=== PATIENT | female | born 1990 | race American Indian/Alaskan Native ===

== ENCOUNTER 2017-06-18 10:09 | Day surgery (SDC) | payer OTHER ==
[2017-06-01 09:55] VITALS: BMI 28.4
[2017-06-18] MEDS ORDERED: Propofol 10 mg/ml Inj (20 ML) ONE (13:07)
[2017-06-18] MEDS ORDERED: Midazolam 2 MG/2 ML VIAL ONE (13:07)
[2017-06-18] MEDS ORDERED: Methylene Blue 10 mg/mL(10ml) IV ONE (13:18)
[2017-06-18] MEDS ORDERED: ceFAZolin IV 1 gm in Dextrose 1 GM/50 ML BAG IVPB ONE (13:18)
[2017-06-18] MEDS ORDERED: Bupivacaine HCl 0.5% PF (10 ml) Inj ONE (13:33)
[2017-06-18] MEDS ORDERED: Neostigmine Methylsulfate 3mg/3ml Syringe IV ONE (15:00)
--- NOTE | 2017-06-18 15:11 | PCM.SURG1 ---
Surgeon's Initial Post Op Note - Surgeon's Notes Surgeon: Angeline De La O MD Passport Support Manager: Bernardino Diaz MD Type of Anesthesia: General Endo Pre-Operative Diagnosis: Hydrosalpinx, left ovarian cyst, pelvic pain Operative Findings: antervsersted uteurs 8 weeks, left ovarian simple cyst adhesrent to left broad ligament, dilated fallopian tube, adhesions over both fallopian tubes adn ovaries with immbolie left adenxa, no spillage of dy on intial evalatuion, with bialteral patent fallopian tubes post procedure. Dr Bernardino Diaz was surgical services assistant and essential in gaining entry , retraction, exposure, holding camera, lysing adhesions, fimbrioplasty, ovarian cystectomy and was presnt for entire case. Post-Operative Diagnosis: same as above, biltaeral patent fallopian tubes Operation Performed: Operative laparascopy, left ovarian cystectomy, lysis of adhesions, fimbroplasty Specimen/Specimens Removed: ovarian cyst Estimated Blood Loss: EBL {In ML}: 20 Blood Products Given: N/A Drains Used: No Drains Post-Op Condition: Good Date of Surgery/Procedure: 06/18/17 Time of Surgery/Procedure: 13:00
[2017-06-18] MEDS ORDERED: Lactated Ringer's 1,000 ML IV ONE (15:15)
[2017-06-18] MEDS ORDERED: Oxycodone/Acetaminophen 5/325 mg Tab PO PRN (15:28)
[2017-06-18] MEDS: HYDROmorphone 0.5 mg/0.5 ml ISec IVP PRN ×2 (15:38→16:05)
[2017-06-18] MEDS ORDERED: HYDROmorphone 1 mg/ml ISec ONE ×2 (15:40→16:03)
[2017-06-18] MEDS ORDERED: HYDROmorphone 0.5 mg/0.5 ml ISec IVP PRN (16:47)
[2017-06-18] MEDS ORDERED: Lactated Ringer's 1,000 ML IV SCH (17:00)
[2017-06-18 17:54] VITALS: RESP 18
[2017-06-18 18:34] VITALS: BP 128/84; PULSE 72; TEMP 97.9; O2SAT 100
--- NOTE | 2017-06-19 09:02 | OP ---
PROCEDURE DATE: 06/18/2017 PREOPERATIVE DIAGNOSES: Hydrosalpinx, left ovarian cyst, pelvic pain. POSTOPERATIVE DIAGNOSES: Hydrosalpinx, left ovarian cyst, pelvic pain, bilateral patent fallopian tubes. OPERATION PERFORMED: Operative laparoscopy, left ovarian cystectomy, lysis of adhesions, removal of , removal of ovarian cyst, chromopertubation. SURGEON: Angeline De La O MD PAPER BALER: Bernardino Diaz MD TYPE OF ANESTHESIA: General endotracheal. OPERATIVE FINDINGS: Anteverted uterus 8 weeks, left ovarian simple cyst adherent to left broad ligament, dilated fallopian tubes, adhesions of both fallopian tubes and ovaries with immobile left adnexa, no spillage of dye on initial evaluation but with bilateral patent fallopian tubes post procedure. Dr. Bernardino Diaz was surgical tech and was essential in gaining anterior retraction and closure, holding the camera, lysing of adhesions, ovarian cystectomy, and was present for the entire case. ESTIMATED BLOOD LOSS: 20 mL. BLOOD PRODUCTS: None. COMPLICATIONS: None. DESCRIPTION OF PROCEDURE: The patient is a 27-year-old that desires fertility, that has a history of a chronic left ovarian cyst with possible hydrosalpinx with pelvic pain. After transvaginal ultrasound, was noted to have a persistent left ovarian cyst with pain failing medical management. All risks and benefits of the surgery had been discussed with the patient in, and all of her questions were answered. The patient was taken to the operating room in stable condition. The patient was taken to the operating room where she was placed under general anesthesia without difficulty. She was then prepped and draped in the usual sterile fashion, placed in a dorsal lithotomy position. A preoperative bimanual exam was performed. Attention was then turned to the vagina where weighted speculum was placed in the vagina. Anterior lip of the cervix was grasped using a single-toothed tenaculum. The bladder had been drained with a De Los Santos catheter in place. Following this, the uterus was then sounded and the cervix was sequentially dilated to allow for introduction of the HUMI manipulator, which was insufflated with 8 mL of air. Following this, the methylene blue was then inserted for the chromopertubation. The methylene blue was then inserted slowly to avoid vasospasm. Following this, the surgeon re-gloved, and attention was then turned to the abdomen. Two towel clips were placed to the side of the infraumbilical fold, and 0.5 Marcaine was then inserted under local anesthetic. Following this, a skin incision 5-mm was made, and the Veress needle was then inserted under appropriate . Following this, confirmation was then confirmed using the saline drop test. The gas was then insufflated and there was a normal opening pressure, and the abdomen was then insufflated with CO2 to a pressure of 15 mmHg. Following this, the Veress needle was then removed, and the skin was then tented up and the laparoscope 5 mm was inserted under direct visualization, and there was good placement confirmation noted. Following this, the trocar sleeve was removed, and the laparoscope was then inserted. On inspection of the endometrial cavity, there were adhesions noted to both tubes and ovaries. There was a dilated left fallopian tube with no spillage of dye on either side and an adherent left ovary fixed to the sidewall. The right ovary appeared normal. Following this, the adhesionis were then carefully grasped using the Endoshear scissors, and there was good hemostasis noted. Following this, the hydrosalpinx was then grasped and the tubal ostia with fimbrioplasty opening was created to help allow for spillage of the dye. After manipulation and careful dissection of all adhesions, there was successful removal of dye from bilateral fallopian tubes. Following this, a small incision was made on the left ovary and the ovarian cyst was then hydrodissected using the suction certified addiction counselor, and the cyst wall was bluntly dissected and removed. There was good hemostasis noted and removed through the trocar. The ovarian bed was then irrigated and dried. There was slight oozing noted near the edge of the bed, obtained hemostasis using electrocautery. The pelvis was then irrigated. Once hemostasis was assured, the ports had been removed under direct visualization, and the abdomen was then insufflated. All the gas had been removed. There was good hemostasis noted. Following this, the skin was re-approximated and closed with 4-0Monocryl in a running subcuticular fashion. The abdomen was cleaned. Steri-Strips and bandages were then applied through the dressings. De Los Santos catheter then was removed in addition to the HUMI manipulator. At the end of the procedure, all needle, sponge and instrument counts were noted to be correct x2. The patient tolerated the procedure well and was transferred to the recovery room in stable condition. Angeline De La O MD
== END 2017-06-18 18:35 | disposition home or self-care (01) ==
LOC: C.SDS 10:09
PROVIDERS: ATTEND Obstetrics & Gynecology
DX: N83.202 Unspecified ovarian cyst, left side (principal); N70.11 Chronic salpingitis; R10.2 Pelvic and perineal pain
CPT/HCPCS: 58662; J0690; J1170; J2250; J2704; J2710; J3010; J7120